=== PATIENT | male | born 1990 | race Caucasian/White ===

== ENCOUNTER 2016-02-29 02:59 | Emergency (ER) | payer BC ==
--- NOTE | 2016-02-29 03:38 | ER Document Report ---
ED General - General Chief Complaint: Flu Symptoms Stated Complaint: FEVER Time seen by provider: 03:35 Mode of Arrival: Ambulatory Information source: Patient Notes: This is a 25-year-old man with no medical problems who presents to the emergency room with subjective fevers, chills, sore throat and dark urine for the past 3 days. Patient denies nausea, vomiting, abdominal pain. Patient denies any significant weakness. TRAVEL OUTSIDE OF THE [place] IN LAST 30 DAYS: No - HPI Onset: Last week Onset/Duration: Gradual Quality of pain: No pain Severity: None Pain Level: Denies Associated symptoms: Chills, Fever, Sore throat. denies: Nonproductive cough, Shortness of breath Exacerbated by: Denies Relieved by: Denies Similar symptoms previously: No Recently seen / treated by doctor: No - Related Data Allergies/Adverse Reactions: cephalexin [Cephalexin] Allergy (Verified 02/29/16 03:27) codeine [Codeine] Allergy (Verified 02/29/16 03:27) Past Medical History - General Information source: Patient - Social History Smoking Status: Never Smoker Chew tobacco use (# tins/day): No Frequency of alcohol use: Occasional Drug Abuse: None Lives with: Family Family History: Reviewed & Not Pertinent Patient has suicidal ideation: No Patient has homicidal ideation: No - Medical History Medical History: Negative Skin Medical History: Reports Hx Eczema Psychiatric Medical History: Reports: Hx Anxiety, Hx Attention Deficit Hyperactivity Disorder Traumatic Medical History: Reports: Hx Fractures - ankle Past Surgical History: Reports: Hx Orthopedic Surgery - On Left ankle - Immunizations Immunizations up to date: Yes Hx Diphtheria, Pertussis, Tetanus Vaccination: No Review of Systems - Review of Systems Constitutional: Chills, Fever EENT: Throat pain Cardiovascular: No symptoms reported Respiratory: No symptoms reported Gastrointestinal: No symptoms reported Genitourinary: No symptoms reported Male Genitourinary: No symptoms reported Musculoskeletal: No symptoms reported Skin: No symptoms reported Hematologic/Lymphatic: No symptoms reported Neurological/Psychological: No symptoms reported Physical Exam - Vital signs Vitals: Temp Pulse Resp BP Pulse Ox 98.4 F 107 H 18 147/97 H 97 02/29/16 03:09 02/29/16 03:09 02/29/16 03:09 02/29/16 03:09 02/29/16 03:09 Notes: Physical exam: GENERAL: 25-year-old man, alert and oriented 3, no acute distress HEAD: Atraumatic, normocephalic. EYES: Pupils equal round and reactive to light, extraocular movements intact, sclera anicteric, conjunctiva are normal. ENT: TMs normal, nares patent, oropharynx reveals bilateral tonsillar erythema with exudates. Moist mucous membranes. NECK: Normal range of motion, supple without lymphadenopathy or JVD. LUNGS: Breath sounds clear to auscultation bilaterally and equal. No wheezes rales or rhonchi. HEART: Regular rate and rhythm without murmurs, rubs or gallops. ABDOMEN: Soft, nontender, normoactive bowel sounds. No guarding, no rebound. No masses appreciated. EXTREMITIES: Normal range of motion, no pitting or edema. No clubbing or cyanosis. NEUROLOGICAL: Cranial nerves II through XII grossly intact. Normal speech, normal gait. PSYCH: Normal mood, normal affect. SKIN: Warm, Dry, normal turgor, no rashes or lesions noted. Course - Re-evaluation Re-evalutation: 02/29/16 04:19 Note: Clinically the patient has exudative tonsillitis. He does have a history of hematuria and has been worked up for this before by a urologist and has had a scope. 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 He does not have any dysuria to speak of. I will send a urine culture. 02/29/16 04:22 Note: The patient does have a history of allergy to cephalosporins: He describes this allergy is getting "windburn on his face". He denies any respiratory symptoms. He has had amoxicillin without any problems in the past. - Vital Signs Vital signs: Temp Pulse Resp BP Pulse Ox 98.4 F 107 H 18 147/97 H 97 02/29/16 03:09 02/29/16 03:09 02/29/16 03:09 02/29/16 03:09 02/29/16 03:09 - Laboratory Laboratory results interpreted by me: 02/29/16 03:40 Urine Blood LARGE H Discharge - Discharge Clinical Impression: exudative tonsillitis Condition: Stable Disposition: HOME, SELF-CARE Instructions: Acetaminophen, Tonsillitis ([facility]) Additional Instructions: Recommendations: Rest, drink plenty of fluids, take antibiotics as prescribed. Follow-up with the doctors at school: He will need your blood pressure rechecked. Return to the emergency room for worsening pain, any concerns or getting worse. Prescriptions: Penicillin V Potassium [Penicillin Vk 500 mg Tablet] 500 mg PO QID #28 tablet
[2016-02-29 04:05] LABS: APPEARANCE,URINE CLEAR; BILIRUBIN,URINE NEGATIVE (NEGATIVE); GLUCOSE, URINE NEGATIVE (NEGATIVE); KETONES,URINE NEGATIVE (NEGATIVE); LEUKOCYTE ESTERASE,URINE NEGATIVE (NEGATIVE); NITRITE,URINE NEGATIVE (NEGATIVE); PROTEIN,URINE NEGATIVE (NEGATIVE); URINE SPECIFIC GRAVITY 1.002; UROBILINOGEN,URINE NEGATIVE mg/dL (<2.0)
[2016-02-29 04:32] VITALS: BP 134/76
== END 2016-02-29 04:35 | disposition home or self-care (01) ==
LOC: ER 02:59
DX: J03.90 Acute tonsillitis, unspecified (principal); R39.89 Other symptoms and signs involving the genitourinary system; R50.9 Fever, unspecified; Z88.1 Allergy status to other antibiotic agents; Z88.5 Allergy status to narcotic agent
CPT/HCPCS: 81001; 87070; 87086; 87804; 87880; 99283

== ENCOUNTER 2019-03-25 16:59 | Emergency (ER) | payer BC, OTHER ==
[2019-03-25] MEDS ORDERED: IBUPROFEN 800 MG TABLET PO ONE (17:42)
[2019-03-25] MEDS ORDERED: HYDROCODONE/ACETAMINOPHEN 5-325 MG TABLET PO ONE ×2 (17:43→18:56)
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
[2019-03-25] MEDS ORDERED: HYDROCODONE/ACETAMINOPHEN 5-325 MG (6 TAB/ER DISP) PO PRN (19:34)
[2019-03-25 19:52] VITALS: BP 130/79
== END 2019-03-25 19:52 | disposition home or self-care (01) ==
LOC: ER 16:59
DX: S80.01XA Contusion of right knee, initial encounter (principal); S80.12XA Contusion of left lower leg, initial encounter; S80.11XA Contusion of right lower leg, initial encounter; S80.219A Abrasion, unspecified knee, initial encounter; S80.02XA Contusion of left knee, initial encounter; S99.911A Unspecified injury of right ankle, initial encounter; S99.912A Unspecified injury of left ankle, initial encounter; S99.921A Unspecified injury of right foot, initial encounter; S99.922A Unspecified injury of left foot, initial encounter; M54.5 Low back pain; V49.9XXA Car occupant (driver) (passenger) injured in unspecified traffic accident, initial encounter
CPT/HCPCS: 72110; 99283